=== PATIENT | female | born 1970 | race Caucasian/White ===

== ENCOUNTER → 2016-09-13 | Outpatient (CLI) | payer BC ==
--- NOTE | 2016-09-13 11:05 | Diagnostic Imaging Report ---
INDICATION: Followup right breast density. COMPARISON: Diagnostic mammogram from earlier the same day and previous right breast sonogram from 03/22/2016. FINDINGS: The inferior half of the right breast is again interrogated sonographically. A prominent fibroglandular ridge is again identified in the 6 to 7 o'clock position. There is an area of relative hypoechogenicity within the fibroglandular ridge at the 7 o'clock position. Again, this has the appearance of normal breast tissue. There may be a lymph node in the 8 o'clock position. It measures approximately 5 mm in shortest axis dimension and demonstrates preservation of normal fatty hilum. No focal abnormality is seen in the 6 o'clock position on today's exam to correspond with the possible lymph node described on the prior study. There is no new sonographic evidence of malignancy. IMPRESSION: 1. Dense fibroglandular ridge in the 6 to 7 o'clock position with intermixed hypoechoic breast tissue but no discrete sonographic evidence of malignancy is identified. BI-RADS CATEGORY 3: Probably benign RECOMMENDATIONS: The patient will be due for yearly bilateral mammographic evaluation in February 2017. This should be scheduled as a diagnostic exam with focused attention to the right breast density and followup sonographic evaluation of the right breast. Dictated by: Dictated on workstation # [id number]
--- NOTE | 2016-09-13 11:07 | Diagnostic Imaging Report ---
INDICATION: Followup right breast density. COMPARISON: 03/22/2016. FINDINGS: Multiple mammographic views of the right breast were obtained. The breast tissue is heterogeneously dense which may obscure a lesion on mammography. No definite focal abnormality is seen within the inferior half of the right breast on the MLO or true lateral view to correspond to the asymmetric density described on the prior exam. No focal abnormality is seen with spot compression views. Additionally, no significant interval change is identified on the CC or exaggerated CC views. Due to the dense nature of the breast tissue, a followup sonogram was performed. The followup sonographic evaluation of the right breast again demonstrates a dense fibroglandular ridge with some intermixed hypoechoic breast tissue. No distinct sonographic evidence of malignancy is identified. IMPRESSION: Stable exam of the right breast as described above. The patient will be due for bilateral mammography in February 2017. This should be scheduled as a diagnostic exam with focused attention to the right breast density and followup sonographic evaluation. BI-RADS CATEGORY 3: Probably benign RECOMMENDATIONS: As above. Dictated by: Dictated on workstation # [id number]
== END ==
LOC: RAD 08:59
PROVIDERS: ATTEND Family Medicine
DX: N63 Unspecified lump in breast (principal); R92.2 Inconclusive mammogram; Z09 Encounter for follow-up examination after completed treatment for conditions other than malignant neoplasm
CPT/HCPCS: 76642; G0206